=== PATIENT | female | born 1965 | race Caucasian/White ===

== ENCOUNTER 2019-07-14 03:09 | Emergency (ER) | payer OTHER, MEDICAID, SELFPAY ==
[2019-07-14 03:21] VITALS: BP 117/78; PULSE 99; RESP 21; TEMP 36.9; O2SAT 99; BMI 16.1
--- NOTE | 2019-07-14 03:23 | ED.FALL ---
HPI - Fall General Chief Complaint: Fall Stated Complaint: fall at home has lumps on head/back pain Time Seen by Provider: 07/14/19 03:15 Source: patient Mode of arrival: Ambulatory Limitations: no limitations History of Present Illness HPI Narrative: 53-year-old female here for evaluations of injuries that she sustained approximately 24 hours ago when she took her sleeping medication and stated that she did not go to bed soon enough. She states she became sleepy and lightheaded dizzy and fell backwards. Hitting her head on the floor. She thinks she did lose consciousness. She is not on anticoagulation. She also stated that since that time she has had pain in her upper shoulders and back and her left ankle. She has been ambulatory since the event. Related Data Allergies Allergy/AdvReac Type Severity Reaction Status Date / Time tetracycline [TETRACYCLINE] Allergy Severe Unverified 01/18/18 12:37 naproxen [NAPROXEN] Allergy Intermediate Unverified 01/18/18 12:37 Review of Systems Constitutional Constitutional: Denies fever(s), Reports frequent falls, Reports headache(s) and Denies lethargy ENT Ears, Nose, Mouth, and Throat: Reports headache(s) Cardiovascular Cardiovascular: Denies chest pain and Denies dyspnea Respiratory Respiratory: Denies dyspnea Gastrointestinal Gastrointestinal: Denies abdominal pain Musculoskeletal Comments: Shoulder pain, left ankle pain Integumentary/Breasts Comments: Bumps on the back of her head Neurologic Neurologic: Denies behavioral changes, Reports frequent falls and Reports headache(s) Psychiatric Psychiatric: Denies behavioral changes Hematologic/Lymphatic Hematologic/Lymphatic: Denies easy bleeding and Denies easy bruising Exam Initial Vital Signs Initial Vital Signs: Vital Signs Temperature 98.5 F 07/14/19 03:21 Pulse Rate 99 H 07/14/19 03:21 Respiratory Rate 21 07/14/19 03:21 Blood Pressure 117/78 07/14/19 03:21 Pulse Oximetry 99 07/14/19 03:21 Const General: well developed and well groomed Orientation: alert, awake and oriented x3 HENMT Head: normal to inspection, normocephalic, atraumatic, No abrasion, No contusion, No hematoma, No laceration and No scalp lesion Resp Effort & Inspection: normal respiratory effort Cardio Rate: regular rate Rhythm: regular rhythm Back/Spine/Pelvis Cervical Spine: No cervical spasm, No cervical spinal tenderness and No step off deformity Thoracic/Lumbar Spine: thoracic spinal tenderness and No lumbar spinal tenderness Skin Lesions: no lesions Rashes: no rashes Neuro General: alert and awake Gait: normal gait Extrem General: normal to inspection and capillary refill normal Other: Some tenderness to palpation along the lateral aspect of the left ankle however is full range of motion left ankle and is ambulatory Psych Appearance: grossly normal and well ket [facility] Medical History Back pain (Inactive) Cervical strain, acute (Inactive) Social History Smoking Status: Current every day smoker Social History Smoking Status: Current every day smoker Scores GCS [place] coma scale eye opening: Spontaneous Jayshree coma scale verbal response: Orientated [place] coma scale motor response: Obey commands Jayshree coma scale total score: 15 Nexus Score for C-Spine Focal Neurologic deficit present: No Midline spinal tenderness present: No Altered level of conciousness present: No Intoxication present: No Distracting Injury Present: No Nexus Criteria for C-spine: 0 Course Orders Ordered: ED Orders 07/14/19 03:24 CT head/brain wo con Stat 07/14/19 04:30 Basic Metabolic Panel Stat Complete Blood Count AUTO DIFF Stat Partial Thromboplastin Time Stat Prothrombin Time INR Stat Discontinued Medications Morphine Sulfate (Morphine) 4 mg IV NOW ONE Stop: 07/14/19 04:17 Last Admin: 07/14/19 04:32 Dose: 4 mg Documented by: VENTURA Vital Signs Vital signs: Vital Signs - 8 hr 07/14/19 03:21 Temperature 98.5 F Pulse Rate 99 H Respiratory Rate 21 Blood Pressure 117/78 Pulse Oximetry 99 MDM - Fall Lab Data Result diagrams: 07/14/19 04:30 07/14/19 04:[address] scan - head: Radiologist's impression: Small subarachnoid hemorrhage within the right frontal temporal region. Small intraparenchymal hemorrhage/cortical contusion in the anterior inferior right frontal lobe with mild surrounding cerebral edema. [facility] Narrative Medical decision making narrative: Patient is alert oriented x3. I did feel that secondary my exam that she did not have midline neck tenderness. I did feel that it was paraspinal with right being greater than left. She is not on anticoagulation. Her fall was approximately 24 hours ago. There was a question of loss of consciousness however this was also in the setting of her taking a sleep aid. CT scan does show subarachnoid and intraparenchymal hemorrhage. She has a normal neurologic exam otherwise. Blood pressure has a systolic less than 120. I did inform the patient of her diagnosis and the need to transfer secondary to neurosurgical services. I discussed the case with Dr. Medina with the emergency department [facility] who accepts the patient in transfer. Patient is stable for transport. Discharge Plan Departure Patient Disposition: [facility] Clinical Impression: Subarachnoid hemorrhage, Intraparenchymal hemorrhage of brain Fall Qualifiers: Encounter type: initial encounter Qualified Code(s): W19.XXXA - Unspecified fall, initial encounter
--- NOTE | 2019-07-14 03:24 | DI.CT.S_ITS ---
PROCEDURE: CT HEAD/BRAIN WO CON INDICATIONS: Fall yesterday, now with severe headache, not on blood thinners TECHNIQUE: Noncontrast 4.5 mm thick angled axial sections acquired from the foramen magnum to the vertex, with coronal and sagittal reformats. For radiation dose reduction, the following was used: automated exposure control, adjustment of mA and/or kV according to patient size. COMPARISON: [facility], CT, CT HEAD WITHOUT CONTRAST, 04/11/2018, 3:37. FINDINGS: Image quality: Excellent. CSF spaces: Basal cisterns are patent. No extra-axial fluid collections. However, there is a small subarachnoid hemorrhage evident overlying the inferior right frontal region. Ventricles are normal in size and shape. Brain: No midline shift. There is a rounded area of peripheral decreased density measuring up to 2.3 cm with a central area of increased attenuation involving the inferior right frontal lobe (image 26, series 5). No additional parenchymal lesions or hemorrhages are evident. [place]-white matter interface is normal. Skull and face: Calvarium and visualized facial bones are intact, without suspicious lesions. Sinuses: Visualized sinuses and mastoids are clear. IMPRESSION: 1. Moderate-sized hemorrhagic contusion along the inferior right frontal lobe. 2. Mild subarachnoid hemorrhage overlying the inferior right frontal region. No subdural or epidural hematomas. Note: The preliminary report provided by [facility] is concordant with the final report. Dictated by: Azeem Tan M.D. on 07/14/2019 at 8:20 Approved by: Azeem Tan M.D. on 07/14/2019 at 8:23
[2019-07-14 03:30] VITALS: BP 111/78; PULSE 82; RESP 17; O2SAT 99
[2019-07-14 03:45] VITALS: BP 97/73; PULSE 71; RESP 21; O2SAT 98
[2019-07-14 04:30] VITALS: BP 108/71; PULSE 70; RESP 19; O2SAT 98
[2019-07-14] MEDS: MORPHINE 4 MG/ML INJ IV (04:32)
[2019-07-14 04:39] LABS: Add Manual Diff / Slide Review NO; Basophils Absolute Auto 100 /uL (0-100); Basophils Percent Auto 0.7 % (0-2); Eosinophils Absolute Auto 200 /uL (0-450); Eosinophils Percent Auto 1.6 % (2-4); Hematocrit 38.5 % (36-46); Lymphocytes Absolute Auto 2600 /uL (1100-4500); Lymphocytes Percent Auto 25.2 % (25-40); Mean Corpuscular HGB Conc 33.9 % (30-36); Mean Corpuscular Hemoglobin 30.6 PG (26-34); Mean Corpuscular Volume 90.4 fL (80-100); Monocytes Absolute Auto 800 /uL (0-900); Monocytes Percent Auto 7.7 % (3-14); Neutrophils Absolute Auto 6700 /uL (1500-7000); Neutrophils Percent Auto 64.8 % (50-75); Platelet Count 225 X10^3/uL (150-400); Red Blood Cell Count 4.26 X10^6/uL (4.0-5.2); Red Cell Distribution Width 13.6 % (11.6-14.8); White Blood Cell Count 10.4 X10^3/uL (4.5-11.0)
[2019-07-14 04:42] LABS: INR 0.9 (0.9-1.3); Prothrombin Time 10.4 SECONDS (10.1-12.7)
[2019-07-14 04:45] LABS: PTT Partial Thromboplastin Tim 31 SECONDS (26.4-36.2)
[2019-07-14 04:47] LABS: Blood Urea Nitrogen 18 mg/dL (7-17); Calcium 9.4 mg/dL (8.4-10.2); Carbon Dioxide 28 mmol/L (22-32); Chloride 102 mmol/L (98-107); Estimated Glomerular Filt Rate > 60.0 mL/min (>60); Glucose 137 mg/dL (70-100); HEMOLYSIS < 15 (0-50); Potassium 3.9 mmol/L (3.4-5.1); Sodium 137 mmol/L (137-145)
[2019-07-14] MEDS: LORazepam 2 MG/ML INJ 1 MG IV (04:54)
[2019-07-14 05:00] VITALS: BP 103/60; PULSE 72; RESP 21; O2SAT 98
[2019-07-14] MEDS: PANTOPRAZOLE 40 MG VIAL IV (05:14)
[2019-07-14] MEDS: ALBUTEROL HFA 60 PUFF/8 GM INH INH (05:19)
[2019-07-14 05:30] VITALS: BP 112/86; PULSE 79; RESP 15; O2SAT 95
[2019-07-14] MEDS: MAG HYDROX/ALUMINUM/SIMETH SUS 20 ML, LIDOCAINE VISCOUS 2% 15 ML PO (05:36)
== END 2019-07-14 06:18 | disposition short-term general hospital (02) ==
PROVIDERS: Emergency Provider Emergency Medicine
DX: S06.2X0A Diffuse traumatic brain injury without loss of consciousness, initial encounter (principal); W19.XXXA Unspecified fall, initial encounter
CPT/HCPCS: 36415; 70450; 80048; 85025; 85610; 85730; 94640; 96374; 96375; 99283; 99284; C9113; J2060; J2270